=== PATIENT | female | born 1940 | race Caucasian/White ===

== ENCOUNTER 2020-01-21 10:02 | Outpatient (RCR) | payer SELFPAY | END 2020-08-13 14:23 | disposition home or self-care (01) | LOC: ANHCPRIII 10:02 | PROVIDERS: Visit Provider Internal Medicine Cardiovascular Disease | DX: Z98.890 Other specified postprocedural states (principal) | CPT/HCPCS: 99199 ==

== ENCOUNTER → 2020-07-07 11:35 | Outpatient (CLI) | payer MEDICARE, SELFPAY ==
--- NOTE | ~2020-07-07 | DEXA_ITS ---
Bone Density Report Name: Diana Welch Age: 79 Sex: Female Ethnicity: White Date of : 1940 Indication: postmenopausal; screening for osteoporosis; Referring Provider: CITLALY SANTANA Study: Bone densitometry was performed. Exam Date: July 07, 2020 Accession number: [id number] Bone Density: Region BMD T-score Z-score Classification AP Spine (L1-L4) 0.892 -1.4 1.3 Osteopenia Femoral Neck (Left) 0.592 -2.3 0.0 Osteopenia Total Hip (Left) 0.618 -2.7 -0.6 Osteoporosis Femoral Neck (Right) 0.594 -2.3 0.0 Osteopenia Total Hip (Right) 0.585 -2.9 -0.8 Osteoporosis Total Hip Mean 0.602 -2.8 -0.7 Osteoporosis World Health Organization criteria for BMD impression classify patients as: Normal (T-score at or above -1.0), Osteopenia (T-score between -1.0 and -2.5), or Osteoporosis (T-score at or below -2.5). 10-year Fracture Risk: FRAX not reported because: Some T-score for Spine Total or Hip Total or Femoral Neck at or below -2.5 Clinical Information Provided by Patient: Has used the following medications: Vitamin D Patient maximum height was 62 Menopause Age: 52 Onset of menses at age 13 Number of children 3 Impression: The patient has osteoporosis, based on the Right Total Hip T-score. Discussion: INCREASED RISK OF FRACTURE. BONE DENSITY IS UNDESIRABLY LOW AT ONE OR MORE SKELETAL SITES, CONSISTENT WITH POSTMENOPAUSAL OSTEOPOROSIS. This patient's lowest T-score meets the World Health Organization's (WHO) criteria for osteoporosis at one or more sites (T-score -2.5 or below). In untreated patients, the risk of osteoporotic fracture increases approximately two-fold for each 1.0 SD decrease in T-score. Low bone density is not the only risk factor for fracture; also consider factors such as patient's age, frailty or poor health, risk of falling, risk of injury, previous osteoporotic fracture, family history of osteoporosis, cigarette smoking, low body weight, etc. Not everyone with low bone mineral density has osteoporosis; osteomalacia and other metabolic bone disorders should also be considered. Patients who have osteoporosis should be evaluated for specific diseases and conditions (secondary causes) that may cause or contribute to bone loss. The [place] [employer]ocrinologists (AACE) and National Osteoporosis Foundation (NOF) recommend pharmacologic intervention for all postmenopausal women whose T-score is in this range. The patient should follow a healthful lifestyle (good nutrition with adequate calcium and vitamin D, and appropriate weight-bearing exercise). Follow-Up: Consider a repeat BMD and Vertebral Fracture Assessment (VFA) exam in 2 years or sooner if medically necessary, to reassess this patient's status. Reported by: ABDULKADIR on 07/07/2020 12:03:00 PM.
== END ==
PROVIDERS: PCP Internal Medicine; Visit Provider Orthopaedic Surgery
DX: M81.0 Age-related osteoporosis without current pathological fracture (principal); M85.88 Other specified disorders of bone density and structure, other site; M85.852 Other specified disorders of bone density and structure, left thigh; M85.851 Other specified disorders of bone density and structure, right thigh
CPT/HCPCS: 77080

== ENCOUNTER → 2021-02-24 13:42 | Outpatient (CLI) | payer MEDICARE, SELFPAY ==
--- NOTE | ~2021-02-24 | US_ITS ---
US thyroid INDICATION: Thyroid nodule TECHNIQUE: Real-time sonographic images of the thyroid gland were obtained. COMPARISON: No prior studies for comparison. FINDINGS: The right thyroid lobe measures 4 x 1.5 x 1.2 cm. The left thyroid lobe measures 3.2 x 1.1 x 1.1 cm. There is heterogeneous echotexture. There are multiple small thyroid nodules, largest in t he right measuring 1.2 x 0.8 x 0.7 cm which is characterized as solid, hypoechoic, wider than tall, i ll-defined margins and no definite calcifications, TR 4. There is a 3 mm cyst on the left aspect of t he isthmus, benign. IMPRESSION: 1. Multiple small thyroid nodules, largest category TR 4. Recommend follow-up ultrasound in 12 month s to assess stability. Reviewed, dictated and finalized at location A. IMPRESSION: 1. Multiple small thyroid nodules, largest category TR 4. Recommend follow-up ultrasound in 12 months to assess stability.
== END ==
PROVIDERS: PCP Internal Medicine; Visit Provider Internal Medicine Endocrinology, Diabetes & Metabolism
DX: E04.2 Nontoxic multinodular goiter (principal)
CPT/HCPCS: 76536

== ENCOUNTER 2021-03-30 08:56 | Outpatient (CLI) | payer MEDICARE, SELFPAY ==
--- NOTE | 2021-03-30 09:51 | ECG_ITS ---
Measurements Intervals [place] Rate: 55 P: 45 GA: 176 QRS: 0 QRSD: 144 T: 56 QT: 449 QTc: 432 Interpretive Statements SINUS BRADYCARDIA LEFT BUNDLE BRANCH BLOCK BASELINE ARTIFACT- I, II, III, AVR, AVL, AVF ABNORMAL ECG Electronically Signed On 03-30-2021 10:05:39 CDT by Brody Webb D.O.
[2021-03-30 10:13] LABS: Basophils Absolute Auto 0.1 K/mm3 (0.0-0.1); Basophils Percent Auto 0.6 % (0.2-1.2); Eosinophils Absolute Auto 0.2 K/mm3 (0-0.3); Eosinophils Percent Auto 2.5 % (0-4.4); Hematocrit 43.9 % (37.0-47.0); Hemoglobin 13.9 g/dL (12.0-15.0); Immature Granulocyte Absolute 0.02 K/mm3 (0.00-0.031); Immature Granulocyte Percent A 0.2 % (0-0.5); Lymphocytes Absolute Auto 1.85 K/mm3 (0.9-3.2); Lymphocytes Percent Auto 22.7 % (18.3-44.2); Mean Corpuscular HGB Conc 31.7 g/dl (32-36); Mean Corpuscular Hemoglobin 28.7 pg (26-34); Mean Corpuscular Volume 90.5 fl (80-100); Mean Platelet Volume 10.6 fl (7.4-10.4); Monocytes Absolute Auto 0.9 K/mm3 (0.1-0.6); Monocytes Percent Auto 10.9 % (2.6-8.5); Neutrophils Absolute Auto 5.1 K/mm3 (1.3-6.7); Neutrophils Percent Auto 63.1 % (45.5-73.1); Platelet Count Result 273 k/mm3 (150-375); Red Blood Count 4.85 M/mm3 (4.2-5.4); Red Cell Distribution Width 13.3 % (11.5-14.5); White Blood Count 8.1 K/mm3 (4.5-10.0)
[2021-03-30 10:26] LABS: Albumin Level 4.3 g/dL (3.5-5.1); Anion Gap 7 mmol/L (8-16); Blood Urea Nitrogen 26 mg/dL (7-17); Calcium 9.8 mg/dL (8.4-10.2); Carbon Dioxide 29 mmol/L (22-30); Chloride 105 mmol/L (98-107); Estimated Glomerular Filt Rate 43; Glucose 84 mg/dL (65-105); Potassium 4.5 mmol/L (3.4-5.0); Sodium 141 mmol/L (137-145)
[2021-03-30 10:32] LABS: Urine Cotinine NEGATIVE
[2021-03-30 10:51] LABS: Hemoglobin A1C 5.8 % (<5.7)
== END 2021-03-30 08:57 | disposition home or self-care (01) ==
PROVIDERS: PCP Internal Medicine; Visit Provider Orthopaedic Surgery
DX: Z01.818 Encounter for other preprocedural examination (principal); M16.11 Unilateral primary osteoarthritis, right hip; R00.1 Bradycardia, unspecified; I44.7 Left bundle-branch block, unspecified; Z51.81 Encounter for therapeutic drug level monitoring; Z79.899 Other long term (current) drug therapy
CPT/HCPCS: 80048; 80307; 82040; 83036; 85025; 87070; 87077; 87186; 93005

== ENCOUNTER → 2021-04-10 01:28 | Outpatient (CLI) | payer MEDICARE, SELFPAY ==
[2021-04-10 19:38] LABS: SARS-CoV-2 RNA PCR Negative
== END ==
PROVIDERS: PCP Internal Medicine; Visit Provider Orthopaedic Surgery
DX: Z01.812 Encounter for preprocedural laboratory examination (principal); Z20.822 Contact with and (suspected) exposure to COVID-19
CPT/HCPCS: C9803; U0003; U0005

== ENCOUNTER 2021-04-14 00:20 | Day surgery (SDC) | payer MEDICARE, SELFPAY ==
[2021-03-30 09:31] VITALS: BP 136/66; PULSE 70; RESP 18; TEMP 36.6; O2SAT 98; BMI 23.0
--- NOTE | 2021-04-13 14:20 | WPDANESEPPF ---
Anes - Initial Pre Proc Eval Procedure: Operation Date: 04/14/21 12:00 Proposed Procedures p Right Total Hip Arthroplasty, Anterior Approach - Emmanuel Babin MD Date/Time: 04/13/21 14:20 Surgeon: Emmaneul Babin MD Pre Op Diagnosis: OA, Right Hip Patient Data Age: 80 Gender: F Height: 1.54 m Weight: 54.4 kg Last Vital Signs Temp 36.6 C 03/30/21 09:31 Pulse 70 03/30/21 09:31 Resp 18 03/30/21 09:31 BP 136/66 03/30/21 09:31 Pulse Ox 98 03/30/21 09:31 Allergies Allergy/AdvReac Type Severity Reaction Status Date / Time cephalexin Allergy Intermediate Itching Unverified 03/30/21 09:20 amoxicillin Allergy Unknown Diarrhea Verified 03/30/21 09:20 clavulanic acid Allergy Unknown Diarrhea Verified 03/30/21 09:20 nitroglycerin AdvReac Severe HYPOTENSION Verified 03/30/21 09:20 Home Medications Medication Instructions Recorded Confirmed Type SUSTAIN 1 drp HS 03/30/21 03/30/21 History amlodipine 5 mg QAM 03/30/21 03/30/21 History aspirin [Aspir-81] 81 mg PO QAM 03/30/21 03/30/21 History atorvastatin 20 mg QAM 03/30/21 03/30/21 History cholecalciferol (vitamin D3) 25 mcg PO DAILY 03/30/21 03/30/21 History clobetasol 1 applic TOPICAL DAILY PRN 03/30/21 03/30/21 History losartan 50 mg QAM 03/30/21 03/30/21 History metoprolol tartrate 12.5 mg BID 03/30/21 03/30/21 History ECG: Date of Service: 03/30/21 Procedure(s): CA 12 lead EKG Accession Number(s): [id number] cc: ~ Measurements Intervals [place] Rate: 55 P: 45 CT: 176 QRS: 0 QRSD: 144 T: 56 QT: 449 QTc: 432 Interpretive Statements SINUS BRADYCARDIA LEFT BUNDLE BRANCH BLOCK BASELINE ARTIFACT- I, II, III, AVR, AVL, AVF ABNORMAL ECG Electronically Signed On 03-30-2021 10:05:39 CDT by Bordy Webb D.O. Dictated By: Brody Webb DO 03/30/21 1005 [facility], [facility] Past Medical History Medical History (Updated 04/13/21 @ 14:21 by Domingo Youssef MD) CAD (coronary artery disease) HTN (hypertension) Hx of myocardial infarction Hypercholesterolemia Osteoarthritis Surgical History Surgical History (Updated 04/13/21 @ 14:21 by Domingo Youssef MD) History of coronary artery stent placement 2019 Social History Social History Smoking status: Never smoker Second hand tobacco smoke exposure: No Alcohol intake: never Substance use: never Substance use type: does not use Spiritual care concerns: No Anes - Eval Final PreProcedure Day of Procedure 04/13/21 14:20 Patient weight: normal Heart: regular rate and rhythm Lungs: clear to auscultation and normal air movement Airway: Mallampati scale class II Neurological: alert and oriented Last oral intake: >/= 8 hours ASA classification: III Emergent: no Anesthetic plan: proceed Anesthesia type and monitoring: general ETT Informed Consent: The patient's anesthetic plan and its attendant risks and benefits were discussed with the patient/family/POA. Questions were solicited and answers provided to the satisfaction of the patient/family/POA.
--- NOTE | 2021-04-14 08:29 | PM.IMHP ---
H&P: HPI History of Present Illness Date/Time: 04/14/21 08:29 80-year-old female patient of Dr. Gates who presents today for a right anterior total hip arthroplasty. Patient has been having pain in this hip for well over a year. She has severe arthritis. She is trying to put off hip replacement as long as possible. She has reached a point where she is having pain on daily basis, she is unable take anti-inflammatories because she is Plavix long-term. Also she has chronic kidney disease which is also why she is unable take anti-inflammatories. She has reached a point where she feels her pain is severe enough she would like to proceed with total hip arthroplasty rather continue nonsurgical treatment. Chief Complaint: right hip DJD Review of Systems Review of Systems: All systems reviewed & are unremarkable except as noted in HPI and below PMFSH Past Medical History Medical History CAD (coronary artery disease) HTN (hypertension) Hx of myocardial infarction Hypercholesterolemia Osteoarthritis Surgical History Surgical History History of coronary artery stent placement 2019 Social History Social History Smoking status: Never smoker Second hand tobacco smoke exposure: No Alcohol intake: never Substance use: never Substance use type: does not use Living arrangements: with family Spiritual care concerns: No Meds Home Medications and Allergies Home Medications Medication Instructions Recorded Confirmed Type SUSTAIN 1 drp HS 03/30/21 03/30/21 History amlodipine 5 mg QAM 03/30/21 03/30/21 History aspirin [Aspir-81] 81 mg PO QAM 03/30/21 03/30/21 History atorvastatin 20 mg QAM 03/30/21 03/30/21 History cholecalciferol (vitamin D3) 25 mcg PO DAILY 03/30/21 03/30/21 History clobetasol 1 applic TOPICAL DAILY PRN 03/30/21 03/30/21 History losartan 50 mg QAM 03/30/21 03/30/21 History metoprolol tartrate 12.5 mg BID 03/30/21 03/30/21 History Allergies Allergy/AdvReac Type Severity Reaction Status Date / Time cephalexin Allergy Intermediate Itching Unverified 03/30/21 09:20 amoxicillin Allergy Unknown Diarrhea Verified 03/30/21 09:20 clavulanic acid Allergy Unknown Diarrhea Verified 03/30/21 09:20 nitroglycerin AdvReac Severe HYPOTENSION Verified 03/30/21 09:20 Exam Narrative: Exam Narrative: 80-year-old female very alert pleasant. She is 5 ft 1 and 120 lb. She walks with a mild limp. She will occasionally use a cane if she has rather severe symptoms. Her right hip flexes to 120, internally rotates to 0 and externally rotates 25 all causing her groin pain. Stinchfield maneuver is negative. Normal abduction strength in lateral position. No tenderness over the greater trochanter. Skin is all healthy around the hip and groin area. 2+ dorsalis pedis pulse. No numbness or tingling in the right lower extremity. Resp: Auscultation: clear to auscultation bilaterally Cardio: Rate: regular rate Rhythm: regular rhythm Assessment and Plan Additional Plan 80-year-old female who has severe arthritis in the right hip with significant symptoms on a daily basis. Again she has reached a point where she would rather proceed with total hip arthroplasty at this point. Surgical procedure as well as risks and complications were discussed in detail and all questions were answered. Patient will see her primary care doctor. She has also seen Dr. Mclean coding consultant. He has had a stress test done which did show evidence of an old infarct. Patient does have a history previous RI with stent. Left ventricular function was normal. Ejection fraction was at 60%. She has also seen her ultrasonographer for her stage 3 chronic kidney disease. He felt that she has been stable for years at this level. And has been cleared as well. We will have patient hold her Plavix 1 week
--- NOTE | 2021-04-14 11:20 | SUR.PREOP ---
1015: PT STATES UPON ARRIVAL HAS RT MEDIAL THIGH INSECT BITE INFLAMMED. APPEARS INFECTED W/. CELLULITIS. DR. SANTANA AWARE. STATES WILL CANCELL SURGERY TODAY AND WANTS HOSPITALIST TO SEE PT TO MAKE RECOMENDATION FOR FOR ANTIBIOTIC COURSE PO AND TO F/U W/ PMD 04/15 OR 04/16 THEN MAY DC PATIENT TODAY.
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
--- NOTE | 2021-04-14 14:37 | SUR.PREOP ---
1330: PT DC'D AFTER EVAL BY BRIAN AND RX OBTAINED FOR JOSE ALBERTO.
== END 2021-04-14 13:30 | disposition home or self-care (01) ==
PROVIDERS: PCP Internal Medicine; Visit Provider Orthopaedic Surgery
PROC: (CPT 27130; principal; 2021-04-14 12:00)
DX: M16.11 Unilateral primary osteoarthritis, right hip (principal); L03.115 Cellulitis of right lower limb; Z53.09 Procedure and treatment not carried out because of other contraindication; I12.9 Hypertensive chronic kidney disease with stage 1 through stage 4 chronic kidney disease, or unspecified chronic kidney disease; N18.9 Chronic kidney disease, unspecified; I25.10 Atherosclerotic heart disease of native coronary artery without angina pectoris; E78.00 Pure hypercholesterolemia, unspecified
CPT/HCPCS: 99211; G0463; J0171; J2270; J2795

== ENCOUNTER 2021-06-08 14:03 | Outpatient (CLI) | payer MEDICARE, SELFPAY ==
[2021-06-08 14:31] LABS: Basophils Percent Auto 0.5 % (0.2-1.2); Eosinophils Absolute Auto 0.2 K/mm3 (0-0.3); Eosinophils Percent Auto 2.7 % (0-4.4); Hematocrit 45.3 % (37.0-47.0); Hemoglobin 14.2 g/dL (12.0-15.0); Immature Granulocyte Absolute 0.02 K/mm3 (0.00-0.031); Immature Granulocyte Percent A 0.2 % (0-0.5); Lymphocytes Absolute Auto 2.31 K/mm3 (0.9-3.2); Lymphocytes Percent Auto 26.6 % (18.3-44.2); Mean Corpuscular HGB Conc 31.3 g/dl (32-36); Mean Corpuscular Hemoglobin 28.3 pg (26-34); Mean Corpuscular Volume 90.4 fl (80-100); Mean Platelet Volume 10.2 fl (7.4-10.4); Monocytes Absolute Auto 0.8 K/mm3 (0.1-0.6); Monocytes Percent Auto 9.5 % (2.6-8.5); Neutrophils Absolute Auto 5.3 K/mm3 (1.3-6.7); Neutrophils Percent Auto 60.5 % (45.5-73.1); Platelet Count Result 283 k/mm3 (150-375); Red Blood Count 5.01 M/mm3 (4.2-5.4); Red Cell Distribution Width 13.4 % (11.5-14.5); White Blood Count 8.7 K/mm3 (4.5-10.0)
[2021-06-08 14:41] LABS: Prothrombin Time 12.6 Seconds (11.1-14.7)
[2021-06-08 14:42] LABS: Albumin Level 4.5 g/dL (3.5-5.1); Anion Gap 9 mmol/L (8-16); Blood Urea Nitrogen 16 mg/dL (7-17); Calcium 9.9 mg/dL (8.4-10.2); Carbon Dioxide 27 mmol/L (22-30); Chloride 105 mmol/L (98-107); Estimated Glomerular Filt Rate 43; Glucose 86 mg/dL (65-110); Partial Thromboplastin Time 27.5 SECONDS (22.3-36.8); Potassium 3.9 mmol/L (3.4-5.0); Sodium 141 mmol/L (137-145)
[2021-06-08 16:41] LABS: Urine Cotinine NEGATIVE
== END 2021-06-08 14:04 | disposition home or self-care (01) ==
LOC: ANHSURGERY 14:06
PROVIDERS: Anesthesiology; PCP Internal Medicine; Visit Provider Orthopaedic Surgery
DX: Z01.818 Encounter for other preprocedural examination (principal); M19.90 Unspecified osteoarthritis, unspecified site; N18.9 Chronic kidney disease, unspecified
CPT/HCPCS: 36415; 80048; 80307; 82040; 85025; 85610; 85730; 86850; 86900; 86901; 87070

== ENCOUNTER 2021-06-17 13:03 | Observation (INO) | payer MEDICARE, SELFPAY ==
[2021-06-07 14:55] VITALS: BMI 22.7
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
[2021-06-16] VITALS (17 sets, daily range): BP systolic 121–151; BP diastolic 50–95; PULSE 58–78; RESP 12–24; TEMP 36.1–36.4; O2SAT 98–100
[2021-06-16] MEDS: LACTATED RINGERS 1,000 ML 30 ML IV CONT ×2 (10:25→16:28)
[2021-06-16] MEDS: TRANEXAMIC ACID 1,000MG/ISO100 1,000 MG/100 ML BAG 200 MG IVPB (10:29)
[2021-06-16] MEDS: ACETAMINOPHEN 500 MG TABLET 1000 MG PO (10:50)
[2021-06-16] MEDS: ONDANSETRON INJ 4 MG/2 ML VIAL IV PUSH ×2 (11:17→20:21)
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
--- NOTE | 2021-06-16 12:20 | WPDHPUPDATE1 ---
History and Physical Update Update Date/Time: 06/16/21 12:20 History and Physical has been reviewed, including an updated exam of the patient. There are NO changes in the patient's condition. Risks, benefits, and alternatives have been discussed and questions answered. Patient agrees to proceed with procedure.
[2021-06-16] MEDS: AZTREONAM 2 GM in DEXTROSE 5% 100 ML 200 ML IVPB (12:24)
[2021-06-16] MEDS: VANCOMYCIN HCL 1,000 MG VIAL 2000 MG XX (13:08)
--- NOTE | 2021-06-16 16:25 | W.PM.PROC2 ---
Procedure Note - Detailed Date of Procedure 06/16/21 Pre-op Diagnosis OA right hip Post-op Diagnosis same Procedure Performed Direct anterior approach right total hip arthroplasty Surgeon Emmanuel Babin MD Turf Keeper Marlena Anesthesia general Indications Severe pain Findings Arthritis Description of Procedure Patient was brought to the operating room and general anesthesia was administered. Boots were applied the feet after padding and SCDs on the legs. [facility] and the right hip prepped draped usual fashion. A 10 cm longitudinal incision was made starting 3 cm lateral to the ASIS. Dissection was carried down the fascia of the tensor fascia caitlin which was longitudinally incised. The interval between her tensor fascia caitlin and rectus femoris developed. Crossing branches of ascending lateral femoral circumflex vessels were ligated with suture divided. Ileal capsular Petterchak was elevated off the anterior capsule. The hip was abducted internally rotated the gluteus minimus elevated off the lateral capsule. Standard capsulotomy was performed femoral neck osteotomy made according to preoperative templating. Acetabulum was exposed labrum excised. The leg was externally rotated extended and the interval between piriformis and conjoined tendon was incised which allowed some of the conjoined tendon to recess and that gave enough anterior mobilization. The leg back in the horizontal position external rotation acetabulum was exposed. We reamed up to 46 mm and the 46 mm trial was still loose we had not quite reamed the periphery. We reamed to the 47 and chose the 48 cup. We tried to impact this but it would not seat until we carefully reamed the opening to the acetabulum without seating the 48 Reamer. This allowed the 48 cup to gradually seat and achieved full seating with excellent Press-Fit. We placed this at about 40? of abduction matching the anterior edge of the acetabulum with the anterior edge of the shell anteversion this left the posterior shell about 3 mm proud. Single screw was placed in the ilium. Bone quality was satisfactory. The leg was externally rotated extended and the proximal femur exposed. Cancellous bone the femur was fairly soft. We used the Actis stem has of her stove pipe anatomy and history of osteoporosis utilizing the hilar for additional support. We broached up to a size 4 which matched our preop templating but on trialing we could see that this was too small. We calcar planed to the level of the neck cut. Stability seemed a little bit loose. We saw that the 4 broach was too loose in the canal we broached up to a size 5 which seated easily and this to had torsional play. Went up to a size 6 which seated to the level of the calcar and this achieved stability. We trialed and the 1 neck was stable but had diminished offset and seemed to lengthen her a little bit more than we had planned. Unhappy with this we broached the for calcar planed and trialed with the 5 was more appropriate on the offset and had appropriate stability without excessive leg length we placed the size 6 stem really came to rest the thigh and we therefore removed the stem and rebroached the 6 countersinking another mm to calcar plane and packed into 6 stem which again came to rest about 1 mm above the calcar plane neck cut as she had an excellent fill of her femur with a 6. On trialing the 1 was too loose the 5 was appropriate and the stainless steel 5 head was impacted on the clean and dried trunnion hip reduced stability reconfirmed. The capsule was reapproximated with 2. Vicryl fascia closed with running 1. Vicryl drain placed in the subcu skin closed with 2 subcutaneous Vicryl and glue EBL was 350 cc. She received 125 back in Cell Saver. Received weight based vancomycin and 2 g of Zaiz tree in and preoperatively. History of allergy to Keflex and amoxicillin. She was transferred postop recovery in stable condition.
[2021-06-16] MEDS: fentaNYL CITRATE INJ (*CRX) 100 MCG/2 ML VIAL 25 MCG IV PUSH ×3 (17:50→18:01)
--- NOTE | 2021-06-16 17:52 | SUR.PHASEI ---
[id number] sbar faxed floor notified
[2021-06-16] MEDS: ACETAMINOPHEN 325 MG TABLET 650 MG PO (18:40)
[2021-06-16] MEDS: MORPHINE SULFATE (*CRX) 2 MG/ML INJ IV PUSH (18:40)
[2021-06-16] MEDS: SODIUM CHLORIDE 0.9% IV 1,000 ML 125 ML IV CONT (18:40)
[2021-06-16 19:32] LABS: Estimated CRCL calculation 26 ml/min; Estimated Glomerular Filt Rate 48
[2021-06-16] MEDS: SENNA/DOCUSATE SODIUM TABLET 2 TAB PO (20:10)
[2021-06-16] MEDS: AZTREONAM 1 GM in DEXTROSE 5% IN WATER 50 ML 100 ML IVPB (20:11)
[2021-06-16] MEDS: METOPROLOL TARTRATE 12.5 MG TABLET PO (21:00)
[2021-06-16] MEDS: oxyCODONE HCL (*CRX) 2.5 MG TAB IR PO (21:02)
[2021-06-17] VITALS (14 sets, daily range): BP systolic 104–119; BP diastolic 47–81; PULSE 62–85; RESP 16–94; TEMP 36.4–37.6; O2SAT 16–98
--- NOTE | ~2021-06-17 | XR_ITS ---
EXAMINATION: XR hip RT 1V w AP pelvis DATE: 06/16/2021 16:27 INDICATION: Anterior approach right total hip arthroplasty. TECHNIQUE: Anteroposterior view of the pelvis and cross-table lateral views of the right hip were obt ained. COMPARISON: 06/16/2021 FINDINGS: Right total hip arthroplasty in near-anatomic alignment. No fracture. Expected soft tissue gas and knott rgical drain at the operative bed. IMPRESSION: 1. Expected appearance post right total hip arthroplasty. Reviewed, dictated and finalized at location A.
--- NOTE | ~2021-06-17 | XR_ITS ---
EXAMINATION: XR surgery orthopedic DATE: 06/16/2021 16:08 INDICATION: Anterior approach right total hip arthroplasty. TECHNIQUE: 2 fluoroscopic images of the right hip were obtained during procedure performed by Dr. Hung trevino. Radiologist was not present for the imaging or procedure. The amount of fluoroscopy time used d uring this procedure was 0.6 minutes. COMPARISON: None. FINDINGS: Noncemented right total hip arthroplasty which is in near anatomic alignment on the single image prov ided. The acetabular component is affixed with at least a single screw. No fracture. Expected soft ti ssue gas at the operative bed. IMPRESSION: 1. Expected appearance during right total hip arthroplasty which appears in near-anatomic alignment. Reviewed, dictated and finalized at location A. IMPRESSION: 1. Expected appearance during right total hip arthroplasty which appears in marty r-anatomic alignment.
[2021-06-17] MEDS: oxyCODONE HCL (*CRX) 2.5 MG TAB IR PO ×6 (00:36→20:27)
[2021-06-17] MEDS: ACETAMINOPHEN 325 MG TABLET 650 MG PO ×4 (00:36→17:00)
[2021-06-17] MEDS: AZTREONAM 1 GM in DEXTROSE 5% IN WATER 50 ML 100 ML IVPB ×2 (04:03→12:57)
[2021-06-17 05:41] LABS: Basophils Percent Auto 0.2 % (0.2-1.2); Hemoglobin 9.9 g/dL (12.0-15.0); Immature Granulocyte Percent A 0.6 % (0-0.5); Lymphocytes Absolute Auto 1.05 K/mm3 (0.9-3.2); Lymphocytes Percent Auto 6.7 % (18.3-44.2); Mean Corpuscular HGB Conc 31.9 g/dl (32-36); Mean Corpuscular Hemoglobin 27.8 pg (26-34); Mean Corpuscular Volume 87.1 fl (80-100); Mean Platelet Volume 10.3 fl (7.4-10.4); Monocytes Absolute Auto 1.3 K/mm3 (0.1-0.6); Monocytes Percent Auto 8.2 % (2.6-8.5); Neutrophils Absolute Auto 13.1 K/mm3 (1.3-6.7); Neutrophils Percent Auto 84.3 % (45.5-73.1); Platelet Count Result 197 k/mm3 (150-375); Red Blood Count 3.56 M/mm3 (4.2-5.4); Red Cell Distribution Width 12.9 % (11.5-14.5); White Blood Count 15.6 K/mm3 (4.5-10.0)
[2021-06-17 05:53] LABS: Anion Gap 7 mmol/L (8-16); Blood Urea Nitrogen 20 mg/dL (7-17); Calcium 8.4 mg/dL (8.4-10.2); Carbon Dioxide 21 mmol/L (22-30); Chloride 101 mmol/L (98-107); Estimated CRCL calculation 29 ml/min; Estimated Glomerular Filt Rate 53; Glucose 135 mg/dL (65-110); Potassium 4.5 mmol/L (3.4-5.0); Sodium 129 mmol/L (137-145)
[2021-06-17] MEDS: SODIUM CHLORIDE 0.9% IV 1,000 ML 125 ML IV CONT (06:07)
--- NOTE | 2021-06-17 07:21 | PM.PNORT ---
Progress Note: A&P Additional Plan POD 1 alert avss , drain to come out this morn, pain is well controlled, pt has been up to chair and using restroom overnight , hgb-9.9 Cr-1.00, pt looks good and feels well, plan to her work with PT today, if cont to do well then plan to send home this afternoon Subjective Subjective Date/Time Seen: 06/17/21 07:21 Objective Data Vital Signs Vital Signs: Vital Signs - 24 hr 06/16/21 10:07 06/16/21 16:28 06/16/21 16:40 Temperature 36.4 C L 36.2 C L Pulse Rate 58 L 78 65 Respiratory Rate 18 24 H 19 Blood Pressure 136/53 L 147/63 H 151/72 H Pulse Oximetry 100 100 100 06/16/21 16:55 06/16/21 17:00 06/16/21 17:10 Temperature Pulse Rate 62 64 Respiratory Rate 21 H 21 H Blood Pressure 141/75 H 143/95 H Pulse Oximetry 100 100 100 06/16/21 17:25 06/16/21 17:40 06/16/21 17:55 Temperature 36.2 C L Pulse Rate 60 62 59 L Respiratory Rate 18 18 12 Blood Pressure 130/95 H 133/62 133/59 L Pulse Oximetry 98 98 100 06/16/21 18:10 06/16/21 18:19 06/16/21 18:30 Temperature 36.2 C L Pulse Rate 60 67 Respiratory Rate 14 16 Blood Pressure 132/59 L 121/50 L Pulse Oximetry 99 99 100 06/16/21 18:34 06/16/21 18:37 06/16/21 20:00 Temperature 36.3 C L Pulse Rate 70 60 78 Respiratory Rate 16 Blood Pressure 122/54 L Pulse Oximetry 100 06/16/21 20:04 06/16/21 21:00 06/17/21 00:00 Temperature 36.1 C L Pulse Rate 73 60 69 Respiratory Rate 20 Blood Pressure 129/52 L Pulse Oximetry 98 06/17/21 00:04 06/17/21 04:00 Temperature 37.1 C Pulse Rate 71 85 Respiratory Rate 18 Blood Pressure 118/47 L Pulse Oximetry 97 Intake/Output Intake/Output: Intake & Output 06/14/21 06/15/21 06/16/21 06/17/21 23:59 23:59 23:59 23:59 Intake Total 1150 1050 Balance 1150 1050 Meds/Results Medications: Active Medications Generic Name Dose Route Start Last Admin Trade Name Freq PRN Reason Stop Dose Admin Acetaminophen 650 mg 06/16/21 19:00 06/17/21 06:07 Acetaminophen 325 Mg Tablet PO 650 mg Q6HR YANNI Administration Al Hydrox/Mg Hydrox/Simethicone 30 ml 06/16/21 18:19 Mag Hydrox/Al Hydrox/Simeth 30 Ml Udc PO Q6H PRN Indigestion Amlodipine Besylate 5 mg 06/17/21 09:00 Amlodipine Besylate 5 Mg Tablet PO QAM ON LICENSE OF [facility] Aspirin 81 mg 06/17/21 09:00 Aspirin 81 Mg Enteric [facility] [place] Atorvastatin Calcium 20 mg 06/17/21 09:00 Atorvastatin 20 Mg Tablet PO QAM ON LICENSE OF [facility] Doxycycline Hyclate 100 mg 06/17/21 09:00 Doxycycline Hyclate 100 Mg Tablet PO Q12HR ON LICENSE OF [facility] Enoxaparin Sodium 30 mg 06/17/21 09:00 Enoxaparin 30 Mg/0.3 Ml Syringe SUB-Q DAILY YANNI Famotidine 20 mg 06/17/21 09:00 Famotidine 20 Mg Tablet PO DAILY YANNI Hydroxyzine HCl 50 mg 06/16/21 18:19 Hydroxyzine Hcl 25 Mg Tablet PO Q4H PRN Itching Sodium Chloride 1,000 mls @ 125 mls/hr 06/16/21 18:19 06/17/21 06:07 Normal Saline Iv IV CONT 125 mls/hr .Q8H YANNI Administration Aztreonam 1 gm/ Dextrose 50 mls @ 100 mls/hr 06/16/21 20:00 06/17/21 04:33 IVPB 06/17/21 12:29 Infused Q8H YANNI Infusion Vancomycin HCl 750 mg in 250 mls @ 250 mls/hr 06/16/21 22:00 06/16/21 22:31 Vancomycin 750 Mg/D5w 250 Ml IVPB 06/17/21 10:59 Infused Q12H YANNI Infusion Magnesium Hydroxide 30 ml 06/16/21 18:19 Magnesium Hydroxide Susp 30 Ml Udc PO BID PRN Constipation Metoprolol Tartrate 12.5 mg 06/16/21 21:00 06/16/21 21:00 Metoprolol Tartrate 12.5 Mg Tablet PO 12.5 mg Q12HR YANNI Administration Morphine Sulfate 2 mg 06/16/21 18:19 06/16/21 18:40 Morphine Sulfate (*Crx) 2 Mg/Ml Inj IV PUSH 2 mg Q4H PRN Administration Pain Rated 7-10 Naloxone HCl 0.1 mg 06/16/21 18:19 Naloxone Hcl 0.4 Mg/Ml Vial IV PUSH Q2M PRN Opiate Reversal Ondansetron HCl 4 mg 06/16/21 18:19 06/16/21 20:21 Ondansetron Inj 4 Mg/2 Ml Vial IV PUSH 4 mg
--- NOTE | 2021-06-17 07:29 | PM.DS ---
DS: Admitting Diagnosis Admitting Diagnosis right hip DJD DS: Summary Hospital Course Hospital Course: stable Time Spent with Patient Time attestation: Total time spent providing and/or coordinating discharge services:80-year-old female underwent right anterior total arthroplasty 06/16/2021. 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 She is weight-bearing as tolerated. She is on Lovenox 30 mg daily for DVT prophylaxis. We using renal dosing due to her chronic kidney disease. Pain is well controlled with Tylenol 650 mg every 6 hours as well as 2.5 mg oxycodone. Patient was up walking the day of surgery she was going to the restroom overnight as well sitting up in the chair after surgery comfortable. Hemoglobin is 9.9 on postop day 1 her creatinine had improved to 1.00. Patient will work with physical therapy on postop day 1 she continued to well plan to send her home on 06/17. Patient was advised to keep leg elevated home. She will also go home on med MiraLax Senokot for constipation. She is also on doxycycline for extended antibiotic use, her nasal swab and did grow oxacillin sensitive Staph aureus. Go home on a regular diet. Patient advise any questions or concerns she should call the office otherwise well-seated 0.8. DS: Data Data Completed and Pending Labs on day of discharge: Labs from last 24 hours 06/17/21 06/17/21 06/16/21 05:23 05:23 18:53 WBC 15.6 H RBC 3.56 L Hgb 9.9 L D Hct 31.0 L MCV 87.1 MCH 27.8 MCHC 31.9 L RDW 12.9 Plt Count 197 MPV 10.3 Immature Gran % (Auto) 0.6 H Neut % (Auto) 84.3 H Lymph % (Auto) 6.7 L [place] % (Auto) 8.2 Eos % (Auto) 0.0 Baso % (Auto) 0.2 Lymph # (Auto) 1.05 [place] # (Auto) 1.3 H Eos # (Auto) 0.0 Baso # (Auto) 0.0 Abs Immat Gran (auto) 0.10 H Absolute Neuts (auto) 13.1 H Absolute Nucleated RBC 0.0 Nucleated RBC % 0.0 Sodium 129 L Potassium 4.5 Chloride 101 Carbon Dioxide 21 L Anion Gap 7 L BUN 20 H Creatinine 1.00 1.10 H Estim Creat Clear Calc 29 26 Estimated GFR 53 L 48 L Glucose 135 H Calcium 8.4 Discharge Plan Discharge Patient Disposition: Home, Self-Care Discharge Instructions: EMMANUEL BABIN M[facility] [address] [place] [address] POST-OPERATIVE DISCHARGE INSTRUCTIONS ANTERIOR TOTAL HIP ARTHROPLASTY 1. Move toes/feet up and down every hour while awake. 2. Be up walking every hour while awake. 3. Use cane in hand opposite of side of hip surgery or walker as comfort allows. Avoid sitting in a chair unless eating, receiving visitors or using the toilet. 4. When resting, lie on back with leg elevated above heart to minimize swelling. Significant swelling could indicate a blood clot and if this occurs, call the office (or go to the ER) to have a venous ultrasound performed. 5. Wound Care: Keep dry sponge on wound for 2 weeks. Use minimal tape. 6. Follow weight bearing status as instructed. 7. May shower with dressing off. Patient Instructions: Pain Management (DC), Precautions after Total Joint Replacement Surgery (ED) Follow-up/Referrals: Emmanuel Babin MD [Physician] - Keep Reg. Scheduled Appt. Discharge Medications: New acetaminophen [Mapap (acetaminophen)] 325 mg Tablet 650 mg PO Q6HR Qty: 90 RF: 0 sennosides-docusate sodium [Senokot-S] 8.6-50 mg Tablet 2 tab-cap PO BID Qty: 60 RF: 0 doxycycline hyclate 100 mg Tablet 100 mg PO Q12HR Qty: 24 RF: 0 enoxaparin 30 mg/0.3 mL Syringe 30 mg subcut DAILY Qty: 10.2 RF: 0 polyethylene glycol 3350 [Miralax] 17 gram Powder In Packet 17 g PO QAM Qty: 30 RF: 0 oxycodone 5 mg tablet 5 mg PO Q4H Qty: 20 RF: 0 Continued losartan 50 mg tablet 50 mg QAM RF: 0 atorvast
[2021-06-17] MEDS: amLODIPine BESYLATE 5 MG TABLET PO (08:04)
[2021-06-17] MEDS: polyethylene glycoL 3350 17 GM POWD.PACK PO (08:04)
[2021-06-17] MEDS: ASPIRIN 81 MG ENTERIC TABLET PO (08:04)
[2021-06-17] MEDS: METOPROLOL TARTRATE 12.5 MG TABLET PO ×2 (08:04→20:27)
[2021-06-17] MEDS: FAMOTIDINE 20 MG TABLET PO (08:04)
[2021-06-17] MEDS: SENNA/DOCUSATE SODIUM TABLET 2 TAB PO ×2 (08:04→17:00)
[2021-06-17] MEDS: ATORVASTATIN 20 MG TABLET PO (08:04)
[2021-06-17] MEDS: ENOXAPARIN 30 MG/0.3 ML SYRINGE SUB-Q (08:05)
[2021-06-17] MEDS: DOXYCYCLINE HYCLATE 100 MG TABLET PO ×2 (08:05→20:27)
[2021-06-17] MEDS: CHOLECALCIFEROL 1,000 UNITS TABLET 1000 UNITS PO (08:05)
--- NOTE | 2021-06-17 09:02 | PM.IMCN ---
Assessment and Plan Assessment and plan (1) Osteoarthritis: Code(s): M19.90 - Unspecified osteoarthritis, unspecified site Status: Acute Assessment and Plan: Patient with severe right hip pain from OA. She has been trying to put this off as long as possible but the pain was too much. She is now s/p right TKA and appears to have tolerated the procedure well. She has already been up walking with therapy and tolerated this well. Plan for home with after discharge. Pain management per ortho. Continue PT/OT (2) Hyponatremia: Code(s): E87.1 - Hypo-osmolality and hyponatremia Status: Acute Assessment and Plan: Na 129 with normal baseline. Not on diuretics or SSRIs and no acute fluid changes (ie: no n/v/d) but did have the isotonic shift with the blood loss. Suspect SIADH. Will check urine studies. FENa 0.55% so possibly dehydrated. On IV fluids. Monitor. (3) Leukocytosis: Code(s): D72.829 - Elevated white blood cell count, unspecified Status: Acute Assessment and Plan: WBC 15K today. She is on perioperative prophylactic abx currently and Doxycycline continued as well. Possibly leukomoid response from the surgery. Follow (4) Anemia: Code(s): D64.9 - Anemia, unspecified Status: Acute Assessment and Plan: Hgb 9.9 this morning with normal Hgb pre-op. EBL was 350mL with 125mL received back in Cell Saver. Monitor closely. Could be contributing to the occasional soft BP. (5) HTN (hypertension): Code(s): I10 - Essential (primary) hypertension Status: Acute Assessment and Plan: Patient's blood pressure was reviewed and remains well controlled. Will continue current medications. Watch for lows or orthostatic symptoms. (6) CAD (coronary artery disease): Code(s): I25.10 - Atherosclerotic heart disease of que[place] coronary artery without angina pectoris Status: Acute Assessment and Plan: Patient has a hx of CAD s/p AK with stent placement in 2019. No cardiac or pulmonary symptoms at this time. She is on ASA, Statin, and beta-yuli all of which have been resumed. Continue to monitor. (7) CKD (chronic kidney disease): Code(s): N18.9 - Chronic kidney disease, unspecified Status: Acute Assessment and Plan: Patient has CKD with eGFR in the 40-50 range. Cr 1.0 today and stable. Follow. (8) DVT prophylaxis: Code(s): Z29.9 - Encounter for prophylactic measures, unspecified Status: Acute Assessment and Plan: Lovenox Additional Plan Thank you so much for allowing me to a part of this patient's care. Will continue to follow along with you. HPI Data of Consult Consult date: 06/18/21 Requesting Physician: Emmanuel Babin MD Primary Care Provider: Elana Gates, Consult Narrative Reason for consult: Medical management Narrative: Diana Welch is a 80 year old female with CAD, HTN and CKD here for elective right SARWAT. Patient states he has had right hip pain for about 3 years. Pain is worse with going up and down stairs. She feels the right leg he tries to give out at times. She had the Moderna vaccine in December. She was evaluated by orthopedics deemed the patient failed medical management. Options discussed patient was to proceed with hip replacement. Patient was admitted underwent right total hip arthroplasty on 06/16/2021. Should mention that the patient was seen here in April for hip replacement but this was postponed because of cellulitic type rash. This cleared with cream and oral antibiotics. Patient has been having some mild nausea after the anesthesia but this has improved. She is tolerating oral intake. She has been up ambulating with therapy. No other complaints. Review of systems was negative. Review of Systems Review of Systems: All systems reviewed & are unremarkable except as noted in HPI and below [facility]
[2021-06-17 15:35] LABS: Creatinine Urine 77.4 mg/dL
[2021-06-17 15:38] LABS: Sodium Urine Random 55 meq/L
[2021-06-18] VITALS: PULSE 82
[2021-06-18] MEDS: ACETAMINOPHEN 325 MG TABLET 650 MG PO ×2 (00:29→05:55)
[2021-06-18] MEDS: oxyCODONE HCL (*CRX) 2.5 MG TAB IR PO ×2 (00:29→05:55)
[2021-06-18 02:00] VITALS: BP 142/73; PULSE 95; RESP 18; TEMP 36.1; O2SAT 96
[2021-06-18 04:00] VITALS: PULSE 64
[2021-06-18 05:51] LABS: Basophils Percent Auto 0.3 % (0.2-1.2); Eosinophils Absolute Auto 0.1 K/mm3 (0-0.3); Eosinophils Percent Auto 0.5 % (0-4.4); Hematocrit 29.1 % (37.0-47.0); Hemoglobin 9.1 g/dL (12.0-15.0); Immature Granulocyte Absolute 0.03 K/mm3 (0.00-0.031); Immature Granulocyte Percent A 0.3 % (0-0.5); Lymphocytes Absolute Auto 1.38 K/mm3 (0.9-3.2); Lymphocytes Percent Auto 13.9 % (18.3-44.2); Mean Corpuscular HGB Conc 31.3 g/dl (32-36); Mean Corpuscular Hemoglobin 28.1 pg (26-34); Mean Corpuscular Volume 89.8 fl (80-100); Monocytes Absolute Auto 1.2 K/mm3 (0.1-0.6); Monocytes Percent Auto 11.9 % (2.6-8.5); Neutrophils Absolute Auto 7.2 K/mm3 (1.3-6.7); Neutrophils Percent Auto 73.1 % (45.5-73.1); Platelet Count Result 170 k/mm3 (150-375); Red Blood Count 3.24 M/mm3 (4.2-5.4); White Blood Count 9.9 K/mm3 (4.5-10.0)
[2021-06-18 06:00] VITALS: BP 139/49; PULSE 73; RESP 18; TEMP 36.7; O2SAT 97
[2021-06-18 06:01] LABS: Albumin Level 2.8 g/dL (3.5-5.1); Anion Gap 4 mmol/L (8-16); Blood Urea Nitrogen 19 mg/dL (7-17); Carbon Dioxide 24 mmol/L (22-30); Chloride 101 mmol/L (98-107); Estimated CRCL calculation 26 ml/min; Estimated Glomerular Filt Rate 48; Glucose 91 mg/dL (65-110); Sodium 129 mmol/L (137-145)
--- NOTE | 2021-06-18 07:51 | PM.PNORT ---
Progress Note: A&P Additional Plan POD 2 alert hgb-9.1 Na-129 Cr 1.1 wd-dry pain is well controlled, pt did well with PT testerday, she is feeling good this morning ,having no c/o. min pain, pt feels ready to go home, will plan to d/c late this morn Subjective Subjective Date/Time Seen: 06/18/21 07:51 Objective Data Vital Signs Vital Signs: Vital Signs - 24 hr 06/17/21 08:00 06/17/21 08:04 06/17/21 09:00 Temperature 37.0 C Pulse Rate 73 85 63 Respiratory Rate 16 Blood Pressure 108/57 L Pulse Oximetry 97 06/17/21 12:00 06/17/21 13:15 06/17/21 16:00 Temperature 37.6 C Pulse Rate 62 71 71 Respiratory Rate 16 Blood Pressure 109/81 Pulse Oximetry 96 06/17/21 18:00 06/17/21 20:00 06/17/21 20:27 Temperature 36.9 C Pulse Rate 71 70 72 Respiratory Rate 94 H Blood Pressure 116/66 Pulse Oximetry 16 L 06/17/21 22:04 06/18/21 00:00 06/18/21 04:00 Temperature 36.7 C Pulse Rate 74 82 64 Respiratory Rate 20 Blood Pressure 119/63 Pulse Oximetry 98 Intake/Output Intake/Output: Intake & Output 06/15/21 06/16/21 06/17/21 06/18/21 23:59 23:59 23:59 23:59 Intake Total 1150 3270 Output Total 1180 Balance 1150 2090 Meds/Results Medications: Active Medications Generic Name Dose Route Start Last Admin Trade Name Freq PRN Reason Stop Dose Admin Acetaminophen 650 mg 06/16/21 19:00 06/18/21 05:55 Acetaminophen 325 Mg Tablet PO 650 mg Q6HR YANNI Administration Al Hydrox/Mg Hydrox/Simethicone 30 ml 06/16/21 18:19 Mag Hydrox/Al Hydrox/Simeth 30 Ml Udc PO Q6H PRN Indigestion Amlodipine Besylate 5 mg 06/17/21 09:00 06/17/21 08:04 Amlodipine Besylate 5 Mg Tablet PO 5 mg QAM YANNI Administration Aspirin 81 mg 06/17/21 09:00 06/17/21 08:04 Aspirin 81 Mg Enteric Tablet PO 81 mg QAM YANNI Administration Atorvastatin Calcium 20 mg 06/17/21 09:00 06/17/21 08:04 Atorvastatin 20 Mg Tablet PO 20 mg QAM YANNI Administration Doxycycline Hyclate 100 mg 06/17/21 09:00 06/17/21 20:27 Doxycycline Hyclate 100 Mg Tablet PO 100 mg Q12HR YANNI Administration Enoxaparin Sodium 30 mg 06/17/21 09:00 06/17/21 08:05 Enoxaparin 30 Mg/0.3 Ml Syringe SUB-Q 30 mg DAILY YANNI Administration Famotidine 20 mg 06/17/21 09:00 06/17/21 08:04 Famotidine 20 Mg Tablet PO 20 mg DAILY YANNI Administration Hydroxyzine HCl 50 mg 06/16/21 18:19 Hydroxyzine Hcl 25 Mg Tablet PO Q4H PRN Itching Metoprolol Tartrate 12.5 mg 06/16/21 21:00 06/17/21 20:27 Metoprolol Tartrate 12.5 Mg Tablet PO 12.5 mg Q12HR YANNI Administration Morphine Sulfate 2 mg 06/16/21 18:19 06/16/21 18:40 Morphine Sulfate (*Crx) 2 Mg/Ml Inj IV PUSH 2 mg Q4H PRN Administration Pain Rated 7-10 Naloxone HCl 0.1 mg 06/16/21 18:19 Naloxone Hcl 0.4 Mg/Ml Vial IV PUSH Q2M PRN Opiate Reversal Ondansetron HCl 4 mg 06/16/21 18:19 06/16/21 20:21 Ondansetron Inj 4 Mg/2 Ml Vial IV PUSH 4 mg Q4H PRN Administration Nausea And Vomiting Oxycodone HCl 2.5 mg 06/16/21 18:19 Oxycodone Hcl (*Crx) 2.5 Mg Tab Ir PO Q4H PRN Pain Rated 4-6 Oxycodone HCl 2.5 mg 06/16/21 21:00 06/18/21 05:55 Oxycodone Hcl (*Crx) 2.5 Mg Tab Ir PO 2.5 mg Q4HR YANNI Administration Polyethylene Glycol 17 gm 06/17/21 09:00 06/17/21 08:04 Polyethylene Glycol 3350 17 Gm Powd.Pack PO 17 gm QAM YANNI Administration Senna/Docusate Sodium 2 tab 06/16/21 19:00 06/17/21 17:00 Senna/Docusate Sodium Tablet PO 2 tab BID YANNI Administration Vitamin D 1,000 units 06/17/21 09:00 06/17/21 08:05 Cholecalciferol 1,000 Units Tablet PO 1,000 units DAILY YANNI Administration Radiology Results: ITS Impressions Intraoperative X-Ray 06/16/21 16:15 IMPRESSION: 1. Expected appearance during right total hip arthroplasty which appears in near-anatomic alignment. Hip/Pelvis X-Ray 06/16/21
--- NOTE | 2021-06-18 07:56 | PM.DS ---
DS: Admitting Diagnosis Admitting Diagnosis right hip DJD DS: Summary Hospital Course Hospital Course: stable Time Spent with Patient Time attestation: Total time spent providing and/or coordinating discharge [id number] female who underwent right total hip arthroplasty. Is scheduled to be discharged on 06/17. The patient was feeling somewhat weak and had low sodium 129. She was kept for an additional playground monitor her. Urine studies were done. Postop day 2 her sodium remained at 1:29 a.m. but patient is asymptomatic from this. Hemoglobin was 9.1 and also asymptomatic as well. She has been up with therapy walking well comfortable. Pain is well controlled. Plan will be to discharge her later this morning after she is evaluated by the hospitalist. DS: Data Data Completed and Pending Labs on day of discharge: Labs from last 24 hours 06/18/21 06/18/21 06/17/21 05:05 05:05 15:16 WBC 9.9 RBC 3.24 L Hgb 9.1 L Hct 29.1 L MCV 89.8 MCH 28.1 MCHC 31.3 L RDW 13.0 Plt Count 170 MPV 11.0 H Immature Gran % (Auto) 0.3 Neut % (Auto) 73.1 Lymph % (Auto) 13.9 L [place] % (Auto) 11.9 H Eos % (Auto) 0.5 Baso % (Auto) 0.3 Lymph # (Auto) 1.38 [place] # (Auto) 1.2 H Eos # (Auto) 0.1 Baso # (Auto) 0.0 Abs Immat Gran (auto) 0.03 Absolute Neuts (auto) 7.2 H Absolute Nucleated RBC 0.0 Nucleated RBC % 0.0 Sodium 129 L Potassium 4.0 Chloride 101 Carbon Dioxide 24 Anion Gap 4 L BUN 19 H Creatinine 1.10 H Estim Creat Clear Calc 26 Estimated GFR 48 L Glucose 91 Calcium 9.0 Phosphorus 3.0 Albumin 2.8 L Ur Random Sodium 55 Urine Creatinine 77.4 Discharge Plan Discharge Attending physician on discharge: Emmanuel Babin Consulting providers: Shikha Cruz Discharging Clinician: Refugio Mendiola Anticipated Discharge Date/Time: 06/18/21 11:00 Patient Disposition: Home, Self-Care Activity: march shower Diet: as tolerated Wound Care Instructions: follow printed instructions Discharge Instructions: Yana KERN [facility] [address] [place] [address] POST-OPERATIVE DISCHARGE INSTRUCTIONS ANTERIOR TOTAL HIP ARTHROPLASTY 1. Move toes/feet up and down every hour while awake. 2. Be up walking every hour while awake. 3. Use cane in hand opposite of side of hip surgery or walker as comfort allows. Avoid sitting in a chair unless eating, receiving visitors or using the toilet. 4. When resting, lie on back with leg elevated above heart to minimize swelling. Significant swelling could indicate a blood clot and if this occurs, call the office (or go to the ER) to have a venous ultrasound performed. 5. Wound Care: Keep dry sponge on wound for 2 weeks. Use minimal tape. 6. Follow weight bearing status as instructed. 7. May shower with dressing off. Patient Instructions: Pain Management (DC), Precautions after Total Joint Replacement Surgery (ED) Follow-up/Referrals: Emmanuel Babin MD [Physician] - Keep Reg. Scheduled Appt. Discharge Medications: New acetaminophen [Mapap (acetaminophen)] 325 mg Tablet 650 mg PO Q6HR Qty: 90 RF: 0 sennosides-docusate sodium [Senokot-S] 8.6-50 mg Tablet 2 tab-cap PO BID Qty: 60 RF: 0 doxycycline hyclate 100 mg Tablet 100 mg PO Q12HR Qty: 24 RF: 0 enoxaparin 30 mg/0.3 mL Syringe 30 mg subcut DAILY Qty: 10.2 RF: 0 polyethylene glycol 3350 [Miralax] 17 gram Powder In Packet 17 g PO QAM Qty: 30 RF: 0 oxycodone 5 mg tablet 5 mg PO Q4H Qty: 20 RF: 0 Continued losartan 50 mg tablet 50 mg QAM RF: 0 atorvastatin 20 mg tablet 20 mg QAM RF: 0 amlodipine 5 mg tablet 5 mg QAM RF: 0 aspirin 81 mg Tablet,Delayed Release (Dr/Ec) 81 mg PO QAM RF: 0 metoprolol tartrate 25 mg tablet 12.5 mg BID RF: 0 mary
[2021-06-18 08:35] VITALS: PULSE 73
[2021-06-18] MEDS: DOXYCYCLINE HYCLATE 100 MG TABLET PO (08:35)
[2021-06-18] MEDS: FAMOTIDINE 20 MG TABLET PO (08:35)
[2021-06-18] MEDS: amLODIPine BESYLATE 5 MG TABLET PO (08:35)
[2021-06-18] MEDS: METOPROLOL TARTRATE 12.5 MG TABLET PO (08:35)
[2021-06-18] MEDS: ASPIRIN 81 MG ENTERIC TABLET PO (08:35)
[2021-06-18] MEDS: CHOLECALCIFEROL 1,000 UNITS TABLET 1000 UNITS PO (08:35)
[2021-06-18] MEDS: ATORVASTATIN 20 MG TABLET PO (08:35)
[2021-06-18] MEDS: SENNA/DOCUSATE SODIUM TABLET 2 TAB PO (08:36)
[2021-06-18] MEDS: polyethylene glycoL 3350 17 GM POWD.PACK PO (08:36)
[2021-06-18] MEDS: ENOXAPARIN 30 MG/0.3 ML SYRINGE SUB-Q (08:36)
--- NOTE | 2021-06-18 10:17 | PM.IMPN ---
Progress Note: A&P Assessment and Plan (1) Osteoarthritis: Code(s): M19.90 - Unspecified osteoarthritis, unspecified site Status: Acute Assessment and Plan: Patient with severe right hip pain from OA. She has been trying to put this off as long as possible but the pain was too much. She is now s/p right TKA (POD#2) and has tolerated the procedure well. She is up walking with therapy and able to do stairs. Plan for home with after discharge. Pain management per ortho. Continue PT/OT. (2) Hyponatremia: Code(s): E87.1 - Hypo-osmolality and hyponatremia Status: Acute Assessment and Plan: Na 129 with normal baseline. Not on diuretics or SSRIs and no acute fluid changes (ie: no n/v/d) but with blood loss. Urine studies showing FENa 0.55% so possibly dehydrated. Repeat Na 129. She has a normal baseline. Should correct on its own. Will repeat BMP in 1 week after discharge. (3) Leukocytosis: Code(s): D72.829 - Elevated white blood cell count, unspecified Status: Acute Assessment and Plan: WBC 15K yesterday. She is on perioperative prophylactic abx currently and Doxycycline continued as well. Probably leukomoid response from the surgery. Repeat WBC normal. (4) Anemia: Code(s): D64.9 - Anemia, unspecified Status: Acute Assessment and Plan: Hgb 9.9 yesterday with normal Hgb pre-op. EBL was 350mL with 125mL received back in [facility]. Repeat Hgb 9.1. No signs or symptoms of anemia. (5) HTN (hypertension): Code(s): I10 - Essential (primary) hypertension Status: Acute Assessment and Plan: Patient's blood pressure was reviewed and remains well controlled. Will continue current medications. (6) CAD (coronary artery disease): Code(s): I25.10 - Atherosclerotic heart disease of [place] coronary artery without angina pectoris Status: Acute Assessment and Plan: Patient has a hx of CAD s/p MA with stent placement in 2019. No cardiac or pulmonary symptoms at this time. She is on ASA, Statin, and beta-yuli all of which have been resumed. Continue to monitor. (7) CKD (chronic kidney disease): Code(s): N18.9 - Chronic kidney disease, unspecified Status: Acute Assessment and Plan: Patient has CKD with eGFR in the 40-50 range. Cr 1.1 today and stable. Follow. (8) DVT prophylaxis: Code(s): Z29.9 - Encounter for prophylactic measures, unspecified Status: Acute Assessment and Plan: Lovenox Subjective Date/time seen: 06/18/21 10:17 Interval history: 80yo female with HTN, CKD and CAD here for elective right SARWAT. No problems overnight. Her anxiety improved and she was able to sleep well. She has been ambulating in the halls. She did steps. No chest pain or shortness of breath. Pain is well controlled. She has given herself the Lovenox injection and feels comfortable with this. Exam Narrative: AF 98.0 139/49 73 18 97% ra Gen - NARD Chest - CTA bilaterally CV - RRR S1/S2; Tele showing PVCs Abd - soft, NT/ND, +BS Ext - No pedal edema. 2+ DP pulses bilaterally. Negative Kishan's Neuro - patient is alert and cooperative. Psych - normal mood and affect. Patient is pleasant and cooperative. In good spirits Skin - warm and dry. Objective Data Vital Signs Vital Signs: Vital Signs - 24 hr 06/17/21 12:00 06/17/21 13:15 06/17/21 16:00 Temperature 99.6 F Pulse Rate 62 71 71 Respiratory Rate 16 Blood Pressure 109/81 Pulse Oximetry 96 06/17/21 18:00 06/17/21 20:00 06/17/21 20:27 Temperature 98.5 F Pulse Rate 71 70 72 Respiratory Rate 94 H Blood Pressure 116/66 Pulse Oximetry 16 L 06/17/21 22:04 06/18/21 00:00 06/18/21 02:00 Temperature 98.1 F 97.0 F L Pulse Rate 74 82 95 Respiratory Rate 20 18 Blood Pressure 119/63 142/73 H Pulse Oximetry 98 96 06/18/21 04:00 06/18/21 06:00 06/18/21 08:35 Temperature 98.0 F
== END 2021-06-18 09:55 | disposition home or self-care (01) ==
LOC: ANHSURGERY 13:17 → ANH2MED 13:17
PROVIDERS: Internal Medicine; Physician Assistant Surgical; Admitting Provider Orthopaedic Surgery; PCP Internal Medicine; Visit Provider Orthopaedic Surgery
PROC: (CPT 27130; principal; 2021-06-16 12:00)
DX: M16.11 Unilateral primary osteoarthritis, right hip (principal); I12.9 Hypertensive chronic kidney disease with stage 1 through stage 4 chronic kidney disease, or unspecified chronic kidney disease; N18.9 Chronic kidney disease, unspecified; E87.1 Hypo-osmolality and hyponatremia; D72.829 Elevated white blood cell count, unspecified; D64.9 Anemia, unspecified; I25.10 Atherosclerotic heart disease of native coronary artery without angina pectoris; I25.2 Old myocardial infarction; E78.00 Pure hypercholesterolemia, unspecified; K58.9 Irritable bowel syndrome, unspecified; Z95.5 Presence of coronary angioplasty implant and graft; Z79.82 Long term (current) use of aspirin
CPT/HCPCS: 27130; 36415; 73501; 80048; 80069; 82565; 82570; 84300; 85025; 97110; 97116; 97161; 97165; 97535; A9270; C1776; G0378; J0171; J1650; J2270; J2405; J2704; J2710; J2795; J3010; J3370; J7030; J7120

== ENCOUNTER 2021-06-22 15:04 | Outpatient (CLI) | payer MEDICARE, SELFPAY ==
--- NOTE | ~2021-06-22 | US_ITS ---
EXAMINATION: US venous doppler LE RT DATE: 06/22/2021 15:32 INDICATION: Right lower limb edema. TECHNIQUE: Grayscale ultrasound images without and with compression and Doppler ultrasound images of the right lower extremity veins were obtained. COMPARISON: Ultrasound 01/08/2019 FINDINGS: The visualized portions of right common femoral vein, profunda (deep) femoral vein, femoral vein, pop liteal vein, peroneal veins, posterior tibial veins, and greater saphenous vein outflow are patent. IMPRESSION: 1. No deep venous thrombosis. Reviewed, dictated and finalized at location B.
== END 2021-06-22 15:05 | disposition home or self-care (01) ==
PROVIDERS: PCP Internal Medicine; Visit Provider Orthopaedic Surgery
DX: R60.0 Localized edema (principal)
CPT/HCPCS: 93971

== ENCOUNTER 2021-10-09 22:27 | Emergency (ER) | payer MEDICARE, SELFPAY ==
--- NOTE | ~2021-10-09 | XR_ITS ---
EXAMINATION: XR chest 2V DATE: 10/09/2021 22:59 INDICATION: Midsternal chest pain. COVID Reader earlier in the day. TECHNIQUE: frontal and lateral views of the chest were obtained. COMPARISON: Chest radiograph dated 01/07/2019 FINDINGS: The lungs are clear with no focal airspace opacities, pulmonary edema, pleural effusion or pneumothor ax. The cardiomediastinal silhouette is normal. Kensinger calcified right paratracheal lymph nodes co nsistent with old granulomatous disease. Suture anchor at the right humeral head consistent with prio r rotator cuff repair. IMPRESSION: 1. No acute cardiopulmonary disease. Reviewed, dictated and finalized at location A. UETRY LAYER
--- NOTE | ~2021-10-09 | CT_ITS ---
EXAMINATION: CTA chest PE protocol DATE: 10/09/2021 23:43 INDICATION: Midsternal chest pain post recent hip surgery TECHNIQUE: Computed tomography (CT) pulmonary angiogram of the chest was performed with 100 mL Omnipa que-350 intravenous contrast. Additional 3D reconstructions utilizing coronal maximum intensity proje ction (MIP) were performed. Automated exposure control and iterative reconstruction technique were em ployed. The dose-length product was 306.17 mGy-cm. COMPARISON: None FINDINGS: Excellent contrast opacification of the pulmonary arteries. There is mild streak artifact from dense contrast in the superior vena cava and right atrium. Minimal scattered respiratory motion artifact wh ich does not significantly limit evaluation. No pulmonary embolism. Mild dependent atelectasis in the right lower lobe. No pneumonia, pulmonary edema, pleural effusion or pneumothorax. Heart size is nor mal. Atherosclerotic coronary artery calcification and likely stenting. No pericardial effusion. Thor acic aorta is normal in caliber with no dissection. No pathologically enlarged thoracic lymphadenopat hy. A couple tiny calcified gallstones at the dependent aspect of the normal-appearing gallbladder. N o wall thickening or pericholecystic inflammatory change to suggest acute cholecystitis. Mild thoraci c kyphosis with moderate spondylosis. Chronic mild anterior wedging at T6. IMPRESSION: 1. No pulmonary embolism or other acute cardiopulmonary disease. 2. Cholelithiasis. Reviewed, dictated and finalized at location A. ONE FISHERMAN
[2021-10-09 22:29] VITALS: BP 159/72; PULSE 77; RESP 18; TEMP 36.4; O2SAT 97
--- NOTE | 2021-10-09 22:42 | ECG_ITS ---
Measurements Intervals [place] Rate: 75 P: 69 DE: 179 QRS: -5 QRSD: 132 T: 63 QT: 423 QTc: 473 Interpretive Statements SINUS RHYTHM LEFT BUNDLE BRANCH BLOCK ABNORMAL ECG Electronically Signed On 10-10-2021 7:05:52 INCOME TAX ADJUSTER by Brody Webb D.O.
[2021-10-09 22:54] LABS: Basophils Absolute Auto 0.1 K/mm3 (0.0-0.1); Basophils Percent Auto 0.7 % (0.2-1.2); Eosinophils Absolute Auto 0.5 K/mm3 (0-0.3); Eosinophils Percent Auto 4.5 % (0-4.4); Hematocrit 45.3 % (37.0-47.0); Hemoglobin 14.5 g/dL (12.0-15.0); Immature Granulocyte Absolute 0.03 K/mm3 (0.00-0.031); Immature Granulocyte Percent A 0.3 % (0-0.5); Lymphocytes Absolute Auto 3.16 K/mm3 (0.9-3.2); Lymphocytes Percent Auto 29.6 % (18.3-44.2); Mean Corpuscular Hemoglobin 27.9 pg (26-34); Mean Corpuscular Volume 87.1 fl (80-100); Mean Platelet Volume 10.3 fl (7.4-10.4); Monocytes Percent Auto 9.7 % (2.6-8.5); Neutrophils Absolute Auto 5.9 K/mm3 (1.3-6.7); Neutrophils Percent Auto 55.2 % (45.5-73.1); Platelet Count Result 300 k/mm3 (150-375); Red Cell Distribution Width 13.9 % (11.5-14.5); White Blood Count 10.7 K/mm3 (4.5-10.0)
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
[2021-10-09 23:05] LABS: INR 0.9; Prothrombin Time 11.7 Seconds (11.1-14.7)
[2021-10-09 23:06] LABS: Partial Thromboplastin Time 26.9 SECONDS (22.3-36.8)
[2021-10-09 23:07] LABS: Alanine Aminotransferase 54 U/L (4-35); Albumin Level 5.2 g/dL (3.5-5.1); Alkaline Phosphatase 177 U/L (38-126); Anion Gap 12 mmol/L (8-16); Aspartate Amino Transferase 58 U/L (14-36); Bilirubin,Total 0.6 mg/dL (0.2-1.3); Blood Urea Nitrogen 26 mg/dL (7-17); Calcium 10.9 mg/dL (8.4-10.2); Carbon Dioxide 25 mmol/L (22-30); Chloride 101 mmol/L (98-107); Estimated CRCL calculation 27 ml/min; Estimated Glomerular Filt Rate 48; Glucose 105 mg/dL (65-110); Lipase 175 U/L (23-300); Potassium 4.2 mmol/L (3.4-5.0); Sodium 138 mmol/L (137-145)
[2021-10-09 23:18] LABS: Troponin I < 0.012 ng/mL (0.000-0.034)
[2021-10-09] MEDS: SODIUM CHLORIDE 0.9% IV 1,000 ML 999 ML IV CONT (23:22)
[2021-10-09 23:26] VITALS: BP 146/65; PULSE 68; RESP 13; O2SAT 96
[2021-10-10 00:48] VITALS: BP 134/63; PULSE 67; RESP 20; O2SAT 96
[2021-10-10 02:17] LABS: Troponin I < 0.012 ng/mL (0.000-0.034)
[2021-10-10 03:05] VITALS: BP 148/71; PULSE 64; RESP 18; O2SAT 98
== END 2021-10-10 03:05 | disposition home or self-care (01) ==
PROVIDERS: Emergency Provider Emergency Medicine; PCP Internal Medicine
DX: R07.89 Other chest pain (principal); I25.10 Atherosclerotic heart disease of native coronary artery without angina pectoris; I25.2 Old myocardial infarction; E78.00 Pure hypercholesterolemia, unspecified; K58.9 Irritable bowel syndrome, unspecified; M19.90 Unspecified osteoarthritis, unspecified site; I12.9 Hypertensive chronic kidney disease with stage 1 through stage 4 chronic kidney disease, or unspecified chronic kidney disease; N18.9 Chronic kidney disease, unspecified; Z95.5 Presence of coronary angioplasty implant and graft; Z79.82 Long term (current) use of aspirin; I44.7 Left bundle-branch block, unspecified
CPT/HCPCS: 36415; 71046; 71275; 80053; 83690; 84484; 85025; 85610; 85730; 93005; 96360; 99284; J7030; Q9967

== ENCOUNTER 2024-10-14 23:37 | Emergency (ER) | payer MEDICARE, SELFPAY ==
--- NOTE | ~2024-10-14 | CT_ITS ---
CTA chest abdomen pelvis Ordering provider: Pamella Vizcaino MD History: . r/o dissection; chest pain to back, tingling BUE . Comparison: None. Technique: CT angiogram chest, abdomen and pelvis was performed following timed intravenous injection of contrast. Thin slice axial images and reformatted coronal images were obtained. Three dimensional reformatted images of the chest were also obtained using a [employer] workstation. Radiation reduction t echnique utilized. The dose-length product was 346.02 mGy-cm. FINDINGS: CHEST: --THORACIC AORTA: Mild atheromatous disease. No aneurysm, dissection or mediastinal hematoma. --GREAT VESSELS: Normal as visualized. --PULMONARY ARTERIES: No pulmonary embolus. --VISUALIZED THORACIC INLET: Normal. --MEDIASTINUM: Coronary arteries: Mild atheromatous disease. Heart/other: The heart is not enlarged. Lymph nodes: No mediastinal or hilar adenopathy. --LUNGS: No pulmonary nodules or masses. No infiltrates or effusions. No pneumothorax. Dependent atelectatic c hanges. --MUSCULOSKELETAL: Superficial soft tissues: The superficial soft tissues are normal. Bones: Age appropriate degenerative changes of the spine. Bilateral sacroiliitis with fusion. Right h ip arthroplasty. ABDOMEN/PELVIS: --MUSCULOSKELETAL: Bones: Age appropriate degenerative changes of the spine. Superficial soft tissues: The superficial soft tissues are normal. --UPPER ABDOMINAL ORGANS: Liver: Fat infiltration. Gallbladder: Cholelithiasis with tiny hyperdensities seen posteriorly near to the neck. Spleen: Normal. Stomach/duodenum: Slightly thickened wall of the stomach. Pancreas: Normal. Slightly prominent pancreatic duct. Adrenals: Normal. Kidneys: Left parapelvic left lower pole cysts are noted. The lower pole cyst measures 1.7 cm. --PELVIC ORGANS: The bladder is normal. No bladder stones. --BOWEL AND MESENTERY: Colon: No evidence of diverticulitis. Normal appendix. Small Bowel: Normal. No obstruction. Peritoneum/mesentery: No free air or free fluid. No mesenteric lymphadenopathy. --RETROPERITONEUM: No retroperitoneal lymphadenopathy. --ARTERIES: ABDOMINAL AORTA: Mild atheromatous disease. No aneursym or dissection. RENAL ARTERIES: Normal. CELIAC AXIS: Normal. SMA: Normal. DANIELLE: Normal. ILIAC AND VISUALIZED FEMORAL ARTERIES: Normal. MESENTERIC ARTERIES: Normal. IMPRESSION: CHEST: 1. No evidence of dissection or aneurysm. 2. No acute cardiopulmonary pathology. ABDOMEN/PELVIS: 1. No evidence of dissection or aneurysm seen. 2. No acute abdominal process with no evidence of appendicitis, diverticulitis or intestinal obstruc tion. 3. Fat infiltration of the liver. 4. Cholelithiasis Reviewed, dictated and finalized at location A. OG IC DESIGN ARCHITECT IMPRESSION: CHEST: 1. No evidence of dissection or aneurysm. 2. No acute cardiopulmonary pathology. ABDOMEN/PELVIS: 1. No evidence of dissection or aneurysm seen. 2. No acute abdominal process with no evidence of appendicitis, diverticulitis or intestinal obstruction. 3. Fat infiltration of the liver. 4. Cholelithiasis
--- NOTE | ~2024-10-14 | XR_ITS ---
Clinical Indication: Chest pain PA and lateral views of the chest: Comparison: 10/09/2021 Findings: The lungs are clear, without evidence of focal consolidation or pleural effusion. Stable ca lcified right paratracheal lymph nodes. Cardiomediastinal silhouette is within normal limits. Bones a nd soft tissues are unremarkable. Impression: No acute abnormality. Reviewed, dictated and finalized at location . STRAIGHTENER Impression: No acute abnormality.
--- NOTE | 2024-10-14 23:37 | ECG_ITS ---
Test Date: 2024-10-14 23:45:11 Measurements Intervals [place] Rate: 62 P: 70 MS: 195 QRS: -46 QRSD: 125 T: 73 QT: 432 QTc: 439 Interpretive Statements SINUS RHYTHM MARKED LEFT AXIS DEVIATION [QRS AXIS < -30] LEFT BUNDLE BRANCH BLOCK [120+ ms QRS DURATION, 80+ ms Q/S IN V1/V2, 85+ ms R IN I/aVL/V5/V6] No previous ECG available for comparison Electronically Signed On 10-15-2024 14:53:04 WINE MANAGER by Baltazar Bartlett M.D.
[2024-10-14 23:38] VITALS: BP 172/69; PULSE 78; RESP 16; TEMP 36.6; O2SAT 100
[2024-10-14 23:54] LABS: Basophils Absolute Auto 0.1 K/mm3 (0.0-0.1); Basophils Percent Auto 0.7 % (0.2-1.2); Eosinophils Absolute Auto 0.4 K/mm3 (0-0.3); Eosinophils Percent Auto 4.2 % (0-4.4); Hematocrit 43.3 % (37.0-47.0); Hemoglobin 14.1 g/dL (12.0-15.0); Immature Granulocyte Absolute 0.03 K/mm3 (0.00-0.031); Immature Granulocyte Percent A 0.3 % (0-0.5); Lymphocytes Absolute Auto 3.11 K/mm3 (0.9-3.2); Lymphocytes Percent Auto 36.2 % (18.3-44.2); Mean Corpuscular HGB Conc 32.6 g/dl (32-36); Mean Corpuscular Hemoglobin 29.4 pg (26-34); Mean Corpuscular Volume 90.2 fl (80-100); Mean Platelet Volume 10.2 fl (7.4-10.4); Monocytes Absolute Auto 0.9 K/mm3 (0.1-0.6); Monocytes Percent Auto 10.1 % (2.6-8.5); Neutrophils Absolute Auto 4.2 K/mm3 (1.3-6.7); Neutrophils Percent Auto 48.5 % (45.5-73.1); Platelet Count Result 243 k/mm3 (150-375); Red Cell Distribution Width 13.3 % (11.5-14.5); White Blood Count 8.6 K/mm3 (4.5-10.0)
[2024-10-15 00:05] LABS: Alanine Aminotransferase 33 U/L (6-35); Albumin Level 4.4 g/dL (3.5-5.1); Alkaline Phosphatase 121 U/L (38-126); Anion Gap 5 mmol/L (4-12); Aspartate Amino Transferase 52 U/L (14-36); Bilirubin,Total 0.8 mg/dL (0.2-1.3); Blood Urea Nitrogen 21 mg/dL (7-17); Calcium 9.8 mg/dL (8.4-10.2); Carbon Dioxide 26 mmol/L (22-30); Chloride 108 mmol/L (98-107); Estimated CRCL calculation 24 ml/min; Estimated Glomerular Filt Rate 47; Glucose 102 mg/dL (65-110); Lipase 143 U/L (23-300); Sodium 139 mmol/L (137-145)
[2024-10-15 00:17] LABS: Troponin I < 0.012 ng/mL (0.000-0.034)
[2024-10-15 00:25] LABS: INR 0.9; Prothrombin Time 12.7 Seconds (11.1-14.7)
[2024-10-15 00:26] LABS: Partial Thromboplastin Time 27.1 Seconds (22.3-36.8)
[2024-10-15 07:41] VITALS: BP 158/55; PULSE 61; RESP 16; TEMP 36.2; O2SAT 95
--- NOTE | 2024-10-15 08:03 | PC.NURSE ---
Patient not found in lobby when called for.
--- NOTE | 2024-10-15 08:30 | ECG_ITS ---
Test Date: 2024-10-15 08:34:53 Measurements Intervals [place] Rate: 57 P: -40 [place]: 193 QRS: -26 QRSD: 123 T: 151 QT: 456 QTc: 445 Interpretive Statements SINUS BRADYCARDIA LEFT BUNDLE BRANCH BLOCK [120+ ms QRS DURATION, 80+ ms Q/S IN V1/V2, 85+ ms R IN I/aVL/V5/V6] Compared to ECG 10/14/2024 23:45:11 NO SIGNIFICANT CHANGES Electronically Signed On 10-15-2024 14:55:34 RADIO JOURNALIST by Baltazar Bartlett M.D.
[2024-10-15 08:48] LABS: Troponin I < 0.012 ng/mL (0.000-0.034)
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
[2024-10-15 09:18] VITALS: PULSE 61; O2SAT 99
[2024-10-15 09:21] VITALS: BP 142/66; PULSE 59; RESP 16; O2SAT 99
[2024-10-15 09:21] LABS: Troponin I < 0.012 ng/mL (0.000-0.034)
[2024-10-15 09:49] VITALS: BP 156/68; PULSE 60; RESP 15; TEMP 36.4; O2SAT 99
== END 2024-10-15 09:52 | disposition home or self-care (01) ==
PROVIDERS: Student in an Organized Health Care Education/Training Program; Emergency Provider Emergency Medicine; PCP Internal Medicine
DX: R07.9 Chest pain, unspecified (principal); R20.2 Paresthesia of skin; I25.10 Atherosclerotic heart disease of native coronary artery without angina pectoris; I25.2 Old myocardial infarction; I44.7 Left bundle-branch block, unspecified; I12.9 Hypertensive chronic kidney disease with stage 1 through stage 4 chronic kidney disease, or unspecified chronic kidney disease; N18.9 Chronic kidney disease, unspecified; E78.00 Pure hypercholesterolemia, unspecified; K58.9 Irritable bowel syndrome, unspecified; M19.90 Unspecified osteoarthritis, unspecified site; Z95.5 Presence of coronary angioplasty implant and graft; K76.0 Fatty (change of) liver, not elsewhere classified; K80.20 Calculus of gallbladder without cholecystitis without obstruction; R00.1 Bradycardia, unspecified
CPT/HCPCS: 36415; 71046; 71275; 74174; 80053; 83690; 84484; 85025; 85610; 85730; 93005; 99284; Q9967

== ENCOUNTER 2025-10-12 09:40 | Emergency (ER) | payer MEDICARE, SELFPAY ==
--- NOTE | ~2025-10-12 | XR_ITS ---
Examination: XR chest 2V Clinical History: DIZZINESS Comparison: 10/15/2024 Technique: PA and Lateral Findings: Cardiomediastinal silhouette normal size and configuration. Lungs clear. Calcified mediastinal nodes. No acute bony abnormality. Osteopenia. IMPRESSION: 1. No acute cardiopulmonary findings. Reviewed, dictated and finalized at location R. DECATOR OPERATOR
--- NOTE | ~2025-10-12 | XR_ITS ---
Examination: XR shoulder LT min 2V Clinical History: pain AND NUMBNESS Comparison: None Technique: 4 views left shoulder Findings/impression: 1. No fracture or dislocation left shoulder. 2. Minimal degenerative changes left shoulder. Reviewed, dictated and finalized at location R. RTISING ASSOCIATE
--- NOTE | 2025-10-12 09:41 | ECG_ITS ---
Test Date: 2025-10-12 09:45:49 Measurements Intervals [place] Rate: 64 P: 63 IA: 190 QRS: -37 QRSD: 128 T: 80 QT: 436 QTc: 451 Interpretive Statements SINUS RHYTHM LEFT AXIS DEVIATION LEFT BUNDLE BRANCH BLOCK BASELINE ARTIFACT- I, II, III, AVR, V5 ABNORMAL ECG Compared to ECG 10/15/2024 08:34:53 HEART RATE HAS INCREASED Electronically Signed On 10-12-2025 19:18:42 MARGIN ANALYST by Brody Webb D.O.
[2025-10-12 09:44] VITALS: BP 173/73; PULSE 67; RESP 16; TEMP 36.9; O2SAT 98
[2025-10-12 11:39] LABS: Hematocrit 43.2 % (37.0-47.0); Hemoglobin 13.8 g/dL (12.0-15.0); Immature Granulocyte Percent A 0.4 % (0-0.5); Lymphocytes Absolute Auto 1.74 K/mm3 (0.9-3.2); Mean Corpuscular HGB Conc 31.9 g/dl (32-36); Mean Corpuscular Hemoglobin 28.8 pg (26-34); Mean Corpuscular Volume 90.2 fl (80-100); Nucleated Red Blood Cells Absolute Auto 0.000 K/mm3 (0.0-0.012); Nucleated Red Blood Cells Perc 0.0 % (0.0-0.2); Platelet Count Result 268 k/mm3 (150-375); Red Blood Count 4.79 M/mm3 (4.2-5.4); White Blood Count 7.8 K/mm3 (4.5-10.0)
[2025-10-12 11:51] LABS: Alanine Aminotransferase 36 U/L (6-35); Albumin Level 4.5 g/dL (3.5-5.1); Alkaline Phosphatase 117 U/L (38-126); Anion Gap 7 mmol/L (4-12); Aspartate Amino Transferase 50 U/L (14-36); Bilirubin,Total 0.9 mg/dL (0.2-1.3); Blood Urea Nitrogen 24 mg/dL (7-17); Calcium 10.2 mg/dL (8.4-10.2); Carbon Dioxide 24 mmol/L (22-30); Chloride 108 mmol/L (98-107); Estimated Glomerular Filt Rate 46; Glucose 98 mg/dL (65-110); Potassium 4.4 mmol/L (3.4-5.0); Sodium 139 mmol/L (137-145); Total Protein 8.1 g/dL (6.3-8.2)
[2025-10-12 12:20] LABS: Add Urine Microscopic? NO; Appearance Urine Clear (Clear); Glucose Urine UA Negative (Negative); Leukocyte Esterase Ur Negative LEU/UL (Negative); Nitrate Urine Negative (Negative); Specific Grav Ur 1.007 (1.001-1.035)
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
[2025-10-12] MEDS: MECLIZINE HCL 25 MG TABLET PO (12:37)
[2025-10-12 12:38] VITALS: BP 154/68; PULSE 60
[2025-10-12 12:39] VITALS: BP 156/77; PULSE 66
[2025-10-12 12:41] VITALS: BP 153/74; PULSE 70
[2025-10-12 12:57] LABS: Troponin I < 0.012 ng/mL (0.000-0.034)
--- NOTE | 2025-10-12 14:25 | ECG_ITS ---
Test Date: 2025-10-12 14:30:56 Measurements Intervals [place] Rate: 61 P: 55 [place]: 182 QRS: -42 QRSD: 127 T: 75 QT: 452 QTc: 459 Interpretive Statements SINUS RHYTHM LEFT AXIS DEVIATION LEFT BUNDLE BRANCH BLOCK BASELINE ARTIFACT- I, III, AVL ABNORMAL ECG Compared to ECG 10/12/2025 09:45:49 No significant changes Electronically Signed On 10-12-2025 19:33:19 SPECIAL DELIVERY MESSENGER by Brody Webb D.O.
[2025-10-12 15:50] LABS: Troponin I < 0.012 ng/mL (0.000-0.034)
== END 2025-10-12 16:14 | disposition home or self-care (01) ==
PROVIDERS: Emergency Provider Emergency Medicine; PCP Internal Medicine
DX: R42 Dizziness and giddiness (principal); N18.9 Chronic kidney disease, unspecified; I12.9 Hypertensive chronic kidney disease with stage 1 through stage 4 chronic kidney disease, or unspecified chronic kidney disease; I25.2 Old myocardial infarction; I25.10 Atherosclerotic heart disease of native coronary artery without angina pectoris; E78.00 Pure hypercholesterolemia, unspecified
CPT/HCPCS: 36415; 71046; 73030; 80053; 81003; 84484; 85025; 93005; 99284; A9270